=== PATIENT | female | born 1935 | race Caucasian/White ===

== ENCOUNTER 2016-08-01 18:20 | Inpatient (IN) | payer MEDICARE, BC ==
--- NOTE | ~2016-08-01 | CO ---
Unit #: [id number] #: [id number] Patient: ANUJ BALLESTEROS [id number] [address] [address] [id number] I MR#: [id number] NAME: ANUJ BALLESTEROS. ROOM: 204 Age: 80 Sex: F Admission Date: 08/01/2016 : 1935 Attending Physician: Pérez Arzola M.D. Primary Care Physician: Frantz Lucero M.D. Consultation Date: 08/03/2016 CONSULTATION REPORT CHIEF COMPLAINT Gross hematuria. HISTORY OF PRESENT ILLNESS Ms. Ballesteros is a pleasant 80-year-old female, who presented to the emergency room with gross hematuria. She reports the symptoms began a few weeks ago. It has stayed relatively constant with bright red blood passing in the urine. She has also passed a few string like clots. She has never had a prior episode of gross hematuria. No weak stream, straining, feelings of incomplete emptying. No clot retention. She reports a weight loss of approximately 20 pounds over the past 6 months. She has chronic diarrhea since her cholecystectomy. She denies abdominal or flank pain, or fevers and chills. She has had a couple of episodes of emesis over the past 10 days. PAST MEDICAL HISTORY 1. Crohn disease. 2. Anemia. 3. Chronic biliary obstruction. PAST SURGICAL HISTORY Cholecystectomy, hysterectomy, history of IVC filter which has subsequently been removed, history of umbilical hernia repair. MEDICATIONS See MAR. Note, the patient reports taking baby aspirin at home, but no Coumadin, Plavix, full-dose aspirin. ALLERGIES No known drug allergies. SOCIAL HISTORY Denies smoking tobacco. FAMILY HISTORY No history of cancers. REVIEW OF SYSTEMS The patient reports that she has had a cough over the past several weeks related to bronchitis. She has had headaches with a cough. No prior episodes of headaches. HEENT: No blurry vision. No hearing loss. Occasional epistaxis, most recent episode in the distant past. No sore throat. Unit #: [id number] #: [id number] Patient: ANUJ BALLESTEROS CHEST: She has had a cough over the past several weeks, though not chronic in nature. Occasional mild shortness of breath. CARDIAC: No palpitations or chest pain. ABDOMEN: Denies abdominal pain. She does have chronic diarrhea. EXTREMITIES: No leg swelling. No problems with ambulation. SKIN: No rash or skin breakdown. PSYCHIATRIC: No anxiety or depression. PHYSICAL EXAMINATION VITAL SIGNS: Temp 97.4, pulse 74, respiratory rate 19, BP 114/56. GENERAL: No apparent distress, appears stated age. HEENT: Pupils are equal, round, and responsive to light. Normal hearing. NECK: Trachea midline, neck supple. RESPIRATORY: Normal palpation, normal respiratory effort. CARDIOVASCULAR: Regular rate and rhythm. Good carotid pulses. ABDOMEN: Soft, nontender, nondistended. GENITOURINARY: Normal genitalia. Escobedo intact, urine clear. EXTREMITIES: No palpable edema bilaterally. No clubbing. SKIN: Warm and dry. PSYCHIATRIC: Normal affect and mood. DIAGNOSTIC STUDIES LABORATORY RESULTS: White count 5.5, hemoglobin 9.7, platelets 121. CMP; creatinine 0.9, sodium 132, CO2 of 18, elevated alkaline phosphatase and total bilirubin. IMAGING STUDIES: CT of abdomen and pelvis with IV contrast was reviewed independently by me. Large nonobstructing calculi bilaterally. Multiple renal cysts. Unclear whether these cysts represent hydronephrosis. Bladder is massively distended, but no internal masses given the limitations of the CT scan without hematuria protocol. ASSESSMENT AND PLAN 1. This is an 80-year-old female, who presents with gross hematuria, and found to have a very large obstructing renal calculi. 2. Urine is currently clear. Recommend removing the Escobedo catheter and perform a voiding trial. 3. Discussed completion of her gross hematuria workup with cystoscopy. I would recommend she undergo this in the near future. 4. We discussed management of her nonobstructing calculi. No urgent intervention is necessary, but given the size and location of these, I did recommend treatment. We discussed observation versus ureteroscopy versus extracorporeal shock wave lithotripsy. After risks and benefits were discussed, she elected to undergo elective extracorporeal shock wave lithotripsy. We will arrange this in the near future. We will plan to perform concurrent cystoscopy to complete her gross hematuria workup. Dictated by... Danny Gillis/stephane TD: 08/04/2016 02:41 JOB #: [id number] Unit #: [id number] #: [id number] Patient: LESLIANUJ Mcdonald CONSULTATION REPORT Page 1 of 1 X X CONSULTATION REPORT
--- NOTE | ~2016-08-01 | CT2 ---
[facility] A Service of [facility] / [facility] RADIOLOGY TEXT RESULTS PATIENT: ANUJ BALLESTEROS LOCATION: [facility] : 35 UNIT #: [id number] AGE: [address]: Pérez Azrola MD SEX: F ORDER DR: [id number] [facility] [address] [place], [place] [address] [id number] I MR#: [id number] Acc #: [id number] NAME: ANUJ BALLESTEROS. : 1935 SEX: F STUDY DATE/TIME: 08/01/2016 22:08 UNIT: CED ROOM: 08274 STUDY DESCRIPTION: CT Abd and Pelv W Cont Attending Physician: Pérez Arzola M.D. Ordering Physician: Ed Boom Bahena M.D. Primary Care Physician: Frnatz Lucero M.D. MEDICAL IMAGING REPORT This report is preliminary unless electronic signature is present EXAM CT abdomen and pelvis with contrast DATE 08/01/2016 HISTORY Blood in urine for 3 days. Vaginal bleeding starting last evening. Pelvic pain. Palpitations. COMPARISON CT abdomen and pelvis with contrast 09/04/2015. PROCEDURE 5 mm axial images from the lung bases through the lesser trochanters after intravenous and enteric contrast administration. Sagittal and coronal reformatted images were obtained. This CT exam was performed with one or more of the following radiation dose reduction techniques: automatic control, adjustment of mA and/or kV according to patient size, and iterative reconstruction. FINDINGS ABDOMEN FINDINGS: The examination is abnormal, with multiple findings. There is a 1.4 x 1.7 x 2.2 cm mass lesion or filling defect within the distal common bile duct resulting in severe intrahepatic and extrahepatic biliary ductal dilation. The common bile duct is dilated up to 12 mm. Intrahepatic bile ducts are dilated up to 1.3 cm.. Pancreatic duct is mildly dilated up to 7 mm. The spleen is enlarged up to 14.9 cm cranial caudally. Small quantity ascites is seen, greatest in the perihepatic distribution. Adrenal glands [facility] A Service [facility] RADIOLOGY TEXT RESULTS PATIENT: ANUJ BALLESTEROS LOCATION: [facility] : 35 UNIT #: [id number] AGE: [address]: Pérez Arzola MD SEX: F ORDER DR: are normal. There are multiple bilateral renal parapelvic cysts, but there are also multiple calculi within the dependent portions of the renal pelves and within calyces, as well. There is a stone in the left ureteropelvic junction measuring about 7 mm, which could be a cause of intermittent obstruction. There is marked abnormal wall thickening and inflammatory type change involving the ascending and transverse colon, and to a lesser degree the proximal descending colon, and within the right mid abdominal small bowel loops. This may be related to the patient's previous study of history of Crohn disease. There are abnormally dilated segmental small bowel loops with the right mid abdomen with mild segmental narrowing (series 2 image 42), represent changes of partial bowel obstruction. Moderate calcific atherosclerosis in the abdominal aorta without aneurysm. Normal appendix. No abscess is seen. PELVIS FINDINGS: Urinary bladder is moderately distended and contains some air, which may be related to recent Escobedo catheterization. Presumed surgical absence of the uterus. Small quantity pelvic ascites. Rectum is within normal limits. Lung bases demonstrate emphysematous changes. 8 mm noncalcified lingular nodule unchanged. Mild peribronchiolar thickening is demonstrated within the right middle lobe and bilateral lower lobes may represent changes of small airways infectious-inflammatory process, without dense consolidation. There is lumbar levoscoliosis with multilevel degenerative disc and endplate changes. IMPRESSION 1. Abnormal examination. Abnormal thickening and inflammatory change predominantly involving the ascending and transverse colon, and within the right mid abdominal small bowel loops and to a lesser degree proximal descending colon. Findings may represent active inflammation especially with a previous stated history of Crohn disease. There are features of suspected partial small bowel obstruction related to segmental narrowing of a bowel loop in the right mid abdomen. 2. A mass lesion is seen within the distal common bile duct, resulting in severe intrahepatic and extrahepatic biliary ductal dilation, mild pancreatic ductal dilation. ERCP would be recommended for both diagnostic and therapeutic purposes. 3. Small quantity abdominopelvic ascites. 4. Numerous bilateral renal stones. Most of the renal stones layer dependently within the renal pelves. There may be a stone within the left ureteropelvic junction measuring 8 mm, which could represent a source of intermittent obstruction. [facility]. [facility] Service of [facility] & [facility] RADIOLOGY TEXT RESULTS PATIENT: ANUJ BALLESTEROS LOCATION: [facility] [id number] : 35 UNIT #: [id number] AGE: [address]: Pérez Arzola MD SEX: F ORDER DR: 5. Extensive bilateral renal parapelvic cysts. 6. Suspected peripheral small airways infectious - inflammatory change in the bilateral lower lobes and right middle lobe. Stable 8 mm nodular density in the lingula. Emphysema. 7. Hysterectomy. Dictated by... Ruma Huerta M.D. THIS IS AN ELECTRONICALLY VERIFIED REPORT Ruma Huerta M.D. at 08/02/2016 6:02 AM SHAHLA/maría TD: 08/02/2016 01:43 JOB #: [id number] MEDICAL IMAGING REPORT Page 1 of 1 COPY
--- NOTE | ~2016-08-01 | CO ---
Unit #: [id number] #: [id number] Patient: ANUJ BALLESTEROS [id number] [address] [place], [place] [address] [id number] I MR#: [id number] NAME: ANUJ BALLESTEROS. ROOM: 204 Age: 80 Sex: F Admission Date: 08/01/2016 : 1935 Attending Physician: Pérez Arzola M.D. Primary Care Physician: Frantz Lucero M.D. CONSULTATION REPORT REFERRING PHYSICIAN Dr. Pérez Arzola. PRIMARY CARE PHYSICIAN Frantz Lucero M.D. REASON FOR CONSULTATION Abnormal LFTs, possible colitis, history of Crohn disease. HISTORY OF PRESENT ILLNESS Ms. Ballesteros is an 80-year-old pleasant lady known to me from previous workup and evaluation for last several years; however, she has not been following up for last 9 months, where she has not been taking any medications. She was diagnosed with Crohn disease many years ago. In last 9 months, she has not been taking any medications at that time. We had elected to do an ERCP. She says she has been busy taking care of her son, who had a stroke as well as her uzydnaz-cq-vwu, who is also immobilized and did not have any time for herself. At this time, she presents with hematuria, which has been going on for several weeks and became much more worse over the last few days. She was seen to have a lot of blood in the urine and has been on urethral irrigation at this time. She says she has chronic diarrhea, which has not gotten worse. Her appetite is very poor. She has lost over 20 pounds over the last 6 months or so. She does not have any nausea or vomiting. She has mild abdominal pain. PAST MEDICAL HISTORY 1. Significant for Crohn disease diagnosed in 2006, was limited to the small bowel. The last colonoscopy in 2013 shows no active disease in the colon and biopsies were negative also. 2. Biliary obstruction with significantly dilated CBD and pancreatic duct. Last ERCP was in 2013, where she had sphincterotomy and stenting, which was later removed. Last year, she was found to have a very high tumor markers. No clear mass was seen on imaging. An ERCP was planned; however, the patient has not been able to follow up, because of her personal situation at home. 3. Chronic GERD and esophageal stricture rings, that has been dilated last time last year, apparently not taking PPIs either. She is status post cholecystectomy. She is status post small-bowel obstruction in 2008. She has a history of DVT and PE, and has been on IVC filter placement; however, states she has not been taking any blood thinners recently. ALLERGIES Unit #: [id number] #: [id number] Patient: ANUJ BALLESTEROS None. MEDICATIONS The patient has not been taking any medications for last many months. FAMILY HISTORY Colon cancer, as well as breast cancer. SOCIAL HISTORY Again nonsmoker, nonalcoholic. Lives at home. She actually takes care of her son, who had a stroke and her apvpqyf-my-jaj, who is immobilized. REVIEW OF SYSTEMS Complete 10-point review of systems was done. Very weak and fatigued, poor appetite, lost about 20 pounds. Nausea, no vomiting. Review of all other systems was obtained and is negative other than as mentioned above. PHYSICAL EXAMINATION GENERAL: Appears sick, chronically ill, but alert and oriented, and in no acute distress. VITAL SIGNS: Stable. Temperature 97, pulse 91, respirations 18, blood pressure 136/59. HEENT: Pupils are equal and reactive. Sclerae anicteric. Oral mucosa moist. NECK: No JVD. No lymphadenopathy. CHEST: Few scattered rhonchi. CARDIOVASCULAR: Regular rate and rhythm. No murmurs. ABDOMEN: Mildly distended, and with minimal tenderness. No organomegaly or ascites clinically. Bowel sounds present. EXTREMITIES: Without clubbing, cyanosis, or edema. NEUROLOGIC: Intact. SKIN: Warm and dry. DIAGNOSTIC STUDIES LABORATORY RESULTS: Alkaline phosphatase of 573; total bilirubin of 2.2, seems to be some unchanged. Albumin severely low at 1.9. INR of 2.3. Sodium 134, potassium 2.8. Hemoglobin of 8.5 and platelet count of 162. IMAGING STUDIES: CT scan shows evidence of, 1. A 1.7 x 2.2 cm filling defect or mass in distal common bile duct area. 2. Common bile duct and pancreatic duct, both dilated. 3. Small ureteropelvic stone. 4. Large spleen. 5. Mild ascites. 6. Colon wall thickening in descending and transverse colon. ASSESSMENT AND PLAN 1. The patient with acute hematuria, which is being treated possibly related to the stone. 2. Colon wall thickening, chronic diarrhea, possible flare up of her Crohn disease related colitis versus infectious. We will check stool studies. We will plan on doing a colonoscopy after stabilizing. 3. Biliary obstruction, possible mass versus filling defect in distal common bile duct area. She has had significantly elevated tumor markers. Given her history of longstanding Crohn disease, she is also at very high risk of primary sclerosing cholangitis, could also may have cirrhosis already as a result. We will need endoscopic retrograde cholangiopancreatography versus magnetic resonance Unit #: [id number] #: [id number] Patient: ANUJ BALLESTEROS cholangiopancreatography as well as a liver biopsy over the next few days. 4. Gastroesophageal reflux disease and history of the esophageal stricture. Continue PPI therapy. 5. Weight loss, again possibility of malignancy. Thank you Dr. Ledezma for this interesting consult. We will follow along. Dictated by... Danny Willard/stephane TD: 08/03/2016 01:41 JOB #: [id number] CONSULTATION REPORT Page 1 of 1 X Calixto Jones MD X CONSULTATION REPORT
--- NOTE | ~2016-08-01 | CO ---
Unit #: [id number] #: [id number] Patient: ANUJ BALLESTEROS [id number] [address] [address] [id number] I MR#: [id number] NAME: ANUJ BALLESTEROS. ROOM: 204 Age: 80 Sex: F Admission Date: 08/01/2016 : 1935 Attending Physician: Pérez Arzola M.D. Primary Care Physician: Frantz Lucero M.D. CONSULTATION REPORT CHIEF COMPLAINT We were asked to see for PVCs. HISTORY OF PRESENT ILLNESS Ms. Ballesteros is an 80-year-old white female, who was admitted with hematuria. She has a past medical history for Crohn's, history of chronic biliary obstruction, anemia, 8 mm noncalcified pulmonary nodule as well as a history of a pulmonary embolus, requiring IVC filter and anticoagulation in the past. She presented this admission with hematuria couple of weeks duration. She thought maybe she was having some vaginal bleeding. Primary care note states there was no bleeding around the urethra and no evidence of vaginal bleeding. The patient denied abdominal pain. Denied dysuria. The patient denies history of diabetes. No hypertension, no dyslipidemia, no premature arteriosclerotic heart disease in first degree relatives, no tobacco abuse. PAST MEDICAL HISTORY 1. History of Crohn disease diagnosed around [id number]. 2. History of partial small bowel obstruction, requiring exploratory laparotomy in 2008. Last colonoscopy 10/2014, which was negative. 3. History of biliary dilatation with ERCP and sphincterotomy with stent placement in 08/2013. 4. History of chronic biliary obstruction. 5. History of chronic diarrhea. 6. History of mild gastritis, hiatal hernia, and Schatzki ring per EGD. 7. History of right inguinal hernia. PAST SURGICAL HISTORY 1. History of cholecystectomy. 2. History of total abdominal hysterectomy. 3. History of IVC filters. 4. History of ERCP with sphincterotomy and stent placement. ALLERGIES No known allergies. MEDICATIONS Home medications are being investigated at this time. I do not see any home medications listed. FAMILY HISTORY Positive for colon and breast cancer and hypertension. SOCIAL HISTORY Unit #: [id number] #: [id number] Patient: ANUJ BALLESTEROS The patient lives with many family members. She takes care of a mentally disabled sibling. Lifelong nonsmoker. Rare alcohol intake. No illicit drug use. REVIEW OF SYSTEMS CONSTITUTIONAL: Positive for fatigue. No fevers, no chills. GI: No nausea, vomiting. No blood in the stool. : No dysuria, but positive for hematuria. CARDIOVASCULAR: No chest pain. No chest pressure. NEUROLOGIC: No dizziness. No lightheadedness. No syncope. No near syncope. EXTREMITIES: No lower extremity edema. No orthopnea. PULMONARY: No dyspnea on exertion. No shortness of breath. Pulmonary; no cough. No wheeze. ENDOCRINE: No diabetes. SKIN: No rashes. PHYSICAL EXAMINATION GENERAL: Well developed, well nourished, elderly white female, in a bed, in no acute distress. VITAL SIGNS: Temperature 97.9, pulse 68, normal sinus rhythm with occasional PAC and PVCs, respirations 17, blood pressure 110/51, 5 feet 1-1/2 inches, 48.08 kg, BMI 19. HEENT: Normocephalic and atraumatic. No xanthelasma. Pupils equal, round, reactive to light. Extraocular movements intact. NECK: Supple. No jugular venous distention. No elevated CVP. LUNGS: Clear to auscultation anteriorly posteriorly bilaterally. CORONARY: S1, S2. No S3, S4. No murmurs, rubs, or gallops. No lift. PMI nondisplaced. ABDOMEN: Soft, nontender, nondistended. EXTREMITIES: No clubbing, cyanosis, or edema. SKIN: No rash. SPINE: No scoliosis. DIAGNOSTIC STUDIES IMAGING STUDIES: CT of abdomen and pelvis on 08/01/2016 shows abnormal thickening and inflammatory change predominantly involving the ascending and transverse colon and within the right abdominal small bowel loops into the lesser degree proximal descending colon. Mass lesion is seen within the distal common bile duct resulting in severe intrahepatic and extrahepatic biliary ductal dilatation, mild pancreatic ductal dilatation, small quantity abdominopelvic ascites, numerous bilateral renal stones. Most of the renal stones dependently within the renal pelvis, may be a stone within the left ureteropelvic junction measuring 8 mm, which could represent a source of intermittent obstruction and extensive bilateral renal peripelvic cyst. Suspect a peripheral small airway infectious/inflammatory change in the bilateral lower lobes and right middle lobe. Stable 8 mm nodule density in the lingula. Emphysema. CARDIOVASCULAR STUDIES: 12-lead EKG shows normal sinus rhythm, ventricular rate 67, T-wave inversion in leads V1 and V2. PAC noted. Q-waves in the inferior leads. LABORATORY RESULTS: Sodium 132, potassium 3.5, chloride 110, CO2 18, BUN 12, creatinine 0.9, glucose 76, magnesium 1.6, phosphorus 3.8, total protein 5.8, albumin 1.7. Bilirubin total 2.2, bilirubin direct 1.1, bilirubin indirect 1.5. AST 33, ALT 21, alkaline phosphatase 443. PT 30. INR 2.7. Hemoglobin 9.7, hematocrit 29.3, white blood cell count 5.5, Unit #: [id number] #: [id number] Patient: ANUJ BALLESTEROS platelet count 121. ASSESSMENT AND PLAN Occasional premature ventricular contractions. No ventricular tachycardia. Premature ventricular contractions were single premature ventricular contractions only. Premature atrial contractions. The patient had normal potassium, normal magnesium. We will check an echo. Abnormal EKG. Again, we will check an echocardiogram. The patient denies any cardiac history. No cast. No stents. No angioplasty. No stress testing. We will treat conservatively and indeed of follow for any further recommendations. Dictated by... Mikel MoncadaRHannyNHanny for NMDebbie/stephane TD: 08/04/2016 05:31 JOB #: [id number] CONSULTATION REPORT Page 1 of 1 X X CONSULTATION REPORT
--- NOTE | ~2016-08-01 | DS ---
Unit #: [id number] #: [id number] Patient: ANUJ BALLESTEROS [id number] [address] [place], [place] [address] [id number] I MR#: [id number] NAME: ANUJ BALLESTEROS. ROOM: 204 Age: 81 Sex: F Admission Date: 08/01/2016 : 1935 Discharge Date: Attending Physician: Davdi Brown M.D. Primary Care Physician: Frantz Lucero M.D. DISCHARGE SUMMARY CHIEF COMPLAINT Bloody urine, abdominal pain. HISTORY OF PRESENT ILLNESS The patient is an 81-year-old lady with a past medical history of Crohn disease, history of chronic biliary obstruction, anemia, history of 8 mm noncalcified pulmonary nodule, chronic diarrhea, history of PE in the past status post IVC filter, who presented to the emergency room with a chief complaint of having bloody urine. CONSULTANTS 1. Dr. Calixto Jones. 2. Dr. Ingram. 3. Dr. Obrien. PROCEDURE Colonoscopy. HOSPITAL COURSE Because of the abnormal LFTs and concern for possible colitis and Crohn disease, GI was consulted. She had a colonoscopy. Colonoscopy was essentially normal. She was started on antimicrobials for possible colitis. For hematuria, urology was consulted. Urology evaluated the patient and they recommended the patient possibly requires an outpatient ESWL as an outpatient procedure. She did have occasional PACs and PVCs and for further evaluation, cardiology was consulted. They did an echocardiogram. Echocardiogram showed EF of 65%. LV size is normal. Mild concentric LV hypertrophy. Impaired grade 1 diastolic dysfunction. Cardiology recommended no further workup. Patient is doing clinically better. She wants to go home today. Will discharge her home. Will request her to follow with her primary care as an outpatient. PHYSICAL EXAMINATION On the day of the discharge, her physical examination: VITAL SIGNS: Temperature 97.9, pulse rate 76, respirations 20, blood pressure 111/55. GENERAL: Patient is alert, oriented x3, lying in the bed. No acute distress. HEENT: Normocephalic and atraumatic. No icterus. PERRLA. Extraocular muscles intact. NECK: Supple. No JVD. HEART: S1, S2. Regular rate and rhythm. CHEST: Bilaterally equal air entry. Clear to auscultation. ABDOMEN: Soft, nontender. Bowel sounds present. Unit #: [id number] #: [id number] Patient: ANUJ BALLESTEROS EXTREMITIES: No edema. Normal pulses. DISCHARGE MEDICATIONS 1. Magnesium oxide 400 mg p.o. twice a day. 2. Aspirin 81 mg daily. 3. Oxycodone 5/325 one tab p.o. q.6 p.r.n. for pain. 4. Protonix 40 mg twice a day. 5. Flagyl 500 mg p.o. t.i.d. for two days. 6. Levaquin 750 mg p.o. daily for two days. 7. Over the counter probiotic. FOLLOWUP She is instructed to follow with her primary care. Total time spent in her care, 35 minutes. Dictated by... Danny Damon TD: 08/06/2016 15:39 JOB #: [id number] DISCHARGE SUMMARY Page 1 of 1 X X DISCHARGE SUMMARY
--- NOTE | ~2016-08-01 | HP ---
Unit #: [id number] #: [id number] Patient: ANUJ BALLESTEROS [id number] [address] [place], [place] [address] [id number] MR#: [id number] NAME: ANUJ BALLESTEROS ROOM: 93449 Age: 80 Sex: F Admission Date: 08/01/2016 : 1935 Attending Physician: Pérez Arzola M.D. Primary Care Physician: Frantz Lucero M.D. HISTORY AND PHYSICAL CHIEF COMPLAINT Blood in the urine. DISCUSSION This is an 80-year-old female who has a past medical history significant for a history of Crohn disease, history of chronic biliary obstruction, anemia, history of 8 mm noncalcified pulmonary nodule, chronic diarrhea, history of PE in the past requiring IVC filter placement and subsequent removal. She presented to emergency room with chief complaining of having hematuria. She said whenever she sees blood in the urine she was also suspecting questionable vaginal bleeding but she had a pelvic exam done by ER physician in the ER which did not show any blood clot at vaginal introitus and bleeding is coming from urethra. She said she has been having for a couple of weeks, whenever she pees she sees blood in the urine, a couple of times a day. She though denies any abdominal pain. She had some nausea but no fever, no chills. She denies any other complaint. No loss of consciousness but she feels generalized weak and fatigued and tired. PAST MEDICAL HISTORY 1. History of Crohn disease diagnosed between 2006 and 2007. 2. She has a history of partial small bowel obstruction in 2008 requiring exploratory laparotomy. Also she underwent a capsule endoscopy showing Crohn disease and she is followed by Dr. Jones. Last colonoscopy in October 2014 which was negative. 3. History of biliary dilatation, status post ERCP and sphincterotomy along with stent placement in August 2013. 4. History of chronic biliary obstruction. 5. History of chronic diarrhea. 6. History of previous EGD revealing Schatzki ring and small hiatal hernia, mild gastritis. 7. History of right inguinal hernia x2. 8. Cholecystectomy. 9. History of total abdominal hysterectomy. 10. History of previous pulmonary embolism requiring IVC filter placement and then subsequent removal. ALLERGIES No known drug allergies. HOME MEDICATIONS I do not have home medication at time of dictation. Will call the pharmacy and find home medication. Unit #: [id number] #: [id number] Patient: ANUJ BALLESTEROS FAMILY HISTORY History of colon and breast cancer along with hypertension in the family. SOCIAL HISTORY Patient lives with the family. She is a nonsmoker, does not drink alcohol, no other illicit drug use. REVIEW OF SYSTEMS CONSTITUTIONAL: She feels tired, fatigued. GASTROINTESTINAL: Positive for nausea but no vomiting. No diarrhea. No blood in the stool. GENITOURINARY: She denies any dysuria but she said she has blood in the urine whenever she pees. CARDIOVASCULAR: No chest pain. PULMONARY: No cough. No wheezing. ENDOCRINE: No polyuria. No polydipsia. SKIN: No rash. MUSCULOSKELETAL: No complaint. PHYSICAL EXAMINATION GENERAL: On examination elderly female lying in the bed comfortably currently not in any distress. On general examination she is alert, awake, oriented x3, comfortable, no in any distress. VITAL SIGNS: Current vitals are following: Temperature 97.8, heart rate 91, respiratory rate is 18, blood pressure 136/59, oxygen 100% on room air. HEENT: Extraocular muscles intact. Pupils equally react to light and accommodation. Pharynx is benign. NECK: Supple. No JVD. No thyromegaly. No lymphadenopathy. LUNGS: Clear to auscultation. HEART: S1, S2, regular rate and rhythm. ABDOMEN: Soft, nontender, nondistended. Bowel sounds positive. EXTREMITIES: Inspection normal. No cyanosis. No clubbing. No edema. NEUROLOGIC: No focal neurologic deficit. SKIN: Skin is warm, dry. No rash. PSYCHIATRIC: Normal mood and affect. DIAGNOSTIC STUDIES LABORATORY: Current workup is following: AST 44, ALT 22, alkaline phosphatase 573, total bilirubin 2.2, direct is 1, indirect 1.2, albumin 2.1. UA shows blood positive. Sodium 134, potassium 2.8, chloride 109, glucose 103, BUN 20, creatinine 1, INR is 2.3. CBC: White count 7, hemoglobin 8.5, hematocrit 26, platelet is 162. ASSESSMENT AND PLAN 1. Gross hematuria: Will place a three-way Escobedo catheter with irrigation, ask Urology to evaluate. 2. Hypokalemia: Replace. 3. 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 Jones to reevaluate. 4. Symptomatic anemia with gross acute blood loss anemia: I will go ahead and transfuse two units of pack red blood cells. 5. History of Crohn disease. 6. History of chronic biliary obstruction. 7. History of noncalcified pulmonary nodule. 8. Remote history of pulmonary embolism, status post IVC filter placement and then removal. Unit #: [id number] #: [id number] Patient: ANUJ BALLESTEROS 9. 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 DVT prophylaxis: Will place the patient on SCDs. Dictated by Danny Escobedo/rachel TD: 08/01/2016 23:01 JOB #: [id number] HISTORY AND PHYSICAL Page 1 of 1 X X HISTORY AND PHYSICAL
--- NOTE | ~2016-08-01 | A ---
[facility] Nutrition Therapy DATE: 08/04/16 Patient: ANUJ BALLESTEROS Physician: DAPHNE Address: [address] Room/Bed: [address] [place] [address], Zip: [place] [address] Admit Date: 08/01/16 Date of : [birth year] Height: 5 1.5 Weight: 106 48.08 NUTRITIONAL ASSESSMENT: REASON: 3 NUTRITION RISK PT RE: 20# WEIGHT LOSS PT IS 80 Y.O. FEMALE ADMITTED FOR GROSS HEMATURIA, HYPOKALEMIA PMH: CROHNS DISEASE, SBO, H/O DYSPHAGIA, HIATAL HERNIA, GASTRITIS, CHOLY, REMOTE PE, HX OF PARTIAL SBO S/P EXPLORATORY LAP IN 2008 Anthropometrics: 5'1.5", WT: 105# (48 KG), BMI: 19.5, 97%IBW Labs: GLU: 67, CA+:7.3, ALB: 1.7 Meds: KCL, ZOFRAN, PROTONIX, NACL I/O & Bowel function: 3150/1000 Skin Integrity: DRY SKIN NOTED ALL OVER BODY Estimated Nutrition Needs: INCREASED NUTRIENT NEEDS 2' PT LOW BODY WEIGHT, WEIGHT LOSS NOTED, DECREASED PO INTAKE AND APPETITE Assessment: CHART REVIEWED AND EVENTS NOTED. PT SEEN FOR 3 NUTRITION RISK PT RE: WEIGHT LOSS. PT REPORTS "APPETITE GOES UP AND DOWN", NOTES FEELING NAUSEOUS THIS AM. PT REPORTS CHRONIC DIARRHEA SINCE CHOLECYSTECTOMY IN 1982. PT ADDS SHE HAS LOST ~20# PAST 6 MONTHS/16% SEVERE WEIGHT LOSS NOTED. THIS RD ENCOURAGED SLOW GRADUAL PO INTAKE + EVENTUALLY CONSUMING SMALL FREQUENT MEALS, PT AGREED TO ENSURE CLEAR BID, RD WILL ORDER. PT REPORTED NO DIET QUESTIONS AT THIS TIME. RD TO FOLLOW. SEE RECOMMENDATIONS BELOW. Dx: INADEQUATE PROTEIN-ENERGY INTAKE R/T N/D, CURRENT CONDITION AEB PT REPORT ABOVE, LOW BMI NOTED, 20#/16% SEVERE WEIGHT LOSS NOTED! Intervention: 1. CLEAR LIQUID DIET 2. ENSURE CLEAR (MIXED CURTIS) BID Monitoring, Evaluation and Goals: 1. ORAL INTAKE; CONSUME MEALS AND SUPPLEMENTS W/NO C/O N/V/D (PO>50%) 2. WEIGHTS; PREVENT FURTHER UNINTENTIONAL WEIGHT LOSS 3. LABS; WNL 4. GI; PROMOTE REGULAR GI FUNCTION MONITOR: -PO INTAKE/APPETITE [facility] Nutrition Therapy DATE: 08/04/16 Patient: ANUJ BALLESTEROS Physician: DAPHNE Address: [address] Room/Bed: [address], Zip: [place] [address] Admit Date: 08/01/16 Date of : [birth year] Height: 5 1.5 Weight: 106 48.08 -WEIGHTS -SUPPLEMENT INTAKE Recommendations: 1. ORDER MIXED CURTIS ENSURE CLEAR BID W/MEALS 2. ONCE MEDICALLY FEASIBLE, ADVANCE DIET TOLERATED TO LOW FIBER + 6 SMALL MEALS 3. APPRECIATE FAMILY AND STAFF TO ENCOURAGE ADEQUATE KCAL AND PROTEIN INTAKE RD WILL F/U PER PROTOCOL PT IS MODERATELY COMPROMISED Respectfully, FARIDEH FOWLER MS, RD, LD [employer] [facility] cc: client file
--- NOTE | ~2016-08-01 | OR ---
Unit #: [id number] #: [id number] Patient: ANUJ BALLESTEROS [id number] [address] [address] [id number] I MR#: [id number] NAME: ANUJ BALLESTEROS. ROOM: 204 Date of Procedure: 08/05/2016 Admission Date: 08/01/2016 Surgeon: Calixto Jones M.D. : 1935 Attending Physician: Pérez Arzola M.D. Primary Care Physician: Frantz Lucero M.D. PROCEDURE OPERATIVE NOTE PROCEDURE PERFORMED Colonoscopy to TI with biopsies. INDICATION Patient with history of Crohn's disease, chronic diarrhea, now with abdominal pain. CT scan showing thickening in the colon on the left side significantly, undergoing colonoscopy. MEDICATION Monitored anesthesia. POSTOP FINDING 1. Colonoscopy to the cecum and terminal ileum. Mucosa was completely normal and healthy. No active disease was seen at this point. No polyps or masses were seen. 2. Biopsies taken randomly in the colon looking for disease activity. DESCRIPTION OF PROCEDURE The patient was explained the procedure, risks and benefits along the risks and benefits of anesthesia. She was brought to the endoscopy room. Propofol anesthesia was given. Rectal exam was done which was normal. Colonoscope was lubricated, passed up the rectum, advanced under direct vision all the way to cecum. The cecum was identified by ileocecal valve, appendiceal orifice. Terminal ileum was intubated. It shows normal mucosa. Colonic mucosa was normal throughout. Random biopsies taken. Gently, the scope was pulled out. She tolerated it well. Dictated by... Danny Willard/jaydon TD: 08/05/2016 12:30 JOB #: [id number] Unit #: [id number] #: [id number] Patient: ANUJ BALLESTEROS PROCEDURE OPERATIVE NOTE Page 1 of 1 X Calixto Jones MD X PROCEDURE OPERATIVE NOTE
--- NOTE | ~2016-08-01 | EKG ---
PATIENT: ANUJ BALLESTEROS UNIT #: [id number] Ventricular Rate: 67 BPM Atrial Rate: 67 BPM P-R Interval: 118 ms QRS Duration: 72 ms Q-T Interval: 438 ms QTC Calculation(Bezet): 462 ms P [place]: -8 degrees Calculated R [place]: -11 degrees Calculated T [place]: -9 degrees Diagnosis Line: Sinus rhythm with occasional Premature atrial Diagnosis Line: complexes Diagnosis Line: Abnormal ECG Diagnosis Line: When compared with ECG of 04-SEP-2015 04:54, Diagnosis Line: Premature atrial complexes are now Present Diagnosis Line: Inverted T waves have replaced nonspecific T wave Diagnosis Line: abnormality in Inferior leads Diagnosis Line: Nonspecific T wave abnormality now evident in Diagnosis Line: Anterior leads Diagnosis Line: Confirmed by SALVADOR BYNUM MD ([id number]) on 08/03/2016 Diagnosis Line: 10:54:01 PM INTERPRETING MD: FLETCHER MICHELE
[2016-08-01 17:56] LABS: BASOPHIL% 0.3 % (0-2.5); DIFF IND NO; EOSINOPHIL# 0.1 X10e3 (0-0.7); EOSINOPHIL% 1.2 % (0.0-7.0); HEMATOCRIT 26.1 % (35.0-45.0); HEMOGLOBIN 8.5 gm/dL (12.0-16.0); LYMPHOCYTE# 0.4 X10e3 (1.0-3.5); LYMPHOCYTE% 5.6 % (17.0-45.0); MEAN CELL VOLUME 85.2 FL (83-96); MEAN CORPUSCULAR HEMOGLOBIN 27.6 PG (28-34); MEAN CORPUSCULAR HGB CONC 32.4 g/dL (30-36); MEAN PLATELET VOLUME 7.3 FL (6.5-11.5); MONOCYTE# 0.6 X10e3 (0-1.0); MONOCYTE% 7.2 % (3.0-12.0); NEUTROPHIL# 6.6 X10e3 (1.5-7.1); NEUTROPHIL% 85.7 % (40-75); PLATELET COUNT 162 X10e3 (140-420); RED BLOOD COUNT 3.06 X10e (3.90-5.30); RED CELL DISTRIBUTION WIDTH 18.3 % (11.0-15.5); WHITE BLOOD COUNT 7.7 X10e3 (4.0-10.5)
[2016-08-01 18:04] LABS: URINE SOURCE CLEAN CATCH
[2016-08-01 18:08] LABS: INR 2.3; PROTHROMBIN TIME (PATIENT) 25.3 SECONDS (9.6-11.5)
[~2016-08-01 18:20] MED LIST: ACETAMINOPHEN325 MG PO; ADVAIR INH; ALEVE220 M1 PO; ALKA-SELTZER125 MG PO; ASPIRIN EC81 M1 PO; ASPIRIN81 M2 PO; AZATHIOPRINE50 M1 PO; AZATHIOPRINE50 M2 PO; CALCIUM + D 6001 TA1 PO; CALCIUM 500 +1 EAC2 PO; CALCIUM500 MG PO; CECLOR PO; CIPRO PO; COUMADIN PO; FLAGYL PO; IMMODIUM1 MG/5 M1 PO; IMODIUM A-D2 M1 PO; IMODIUM2 MG; IMODIUM2 MG PO; IMURAN50 MG PO; KCL PO; KROGER PHARMACY; LEVAQUIN PO; LEVAQUIN750 MG PO; LORTAB 7.5-5001 TAB PO; MACROBID100 M1 PO; MICRO-K PO; OMEPRAZOLE20 M1 PO; OMEPRAZOLE40 M1 PO; POTASSIUM99 M1 PO; PREDNISONE PO; PREDNISONE10 MG/DOSE PO; PREVACID PO; PRILOSEC PO; PRILOSEC20 M1 PO; PRILOSEC40 MG PO; RECLAST 55 MG/100 M INJ; VITAMIN B-1000 MCG/1 INJ; WELCHOL625 MG PO
[2016-08-01 18:23] LABS: URINE BLOOD 4+ (NEG); URINE COLOR RED; URINE GLUCOSE NORM (NORM); URINE KETONE NEG (NEG); URINE LEUKOCYTE ESTERASE NEG (NEG); URINE NITRATE NEG (NEG); URINE PROTEIN 3+ (NEG); URINE UROBILINOGEN NORM (NORM)
[2016-08-01 18:24] LABS: CALCIUM SERUM 7.2 mg/dL (8.4-10.2); GLOM FILT RATE Estimated 53.2 mL/min (>60)
[2016-08-01 18:26] LABS: POTASSIUM 2.8 mmol/L (3.5-5.1)
[2016-08-01 18:27] LABS: URINE BILIRUBIN NEG (NEG)
[2016-08-01 18:31] LABS: CULTURE INDICATED? NO; URINE APPEARANCE TURBID
[2016-08-01 19:12] LABS: ALBUMIN SERUM 2.1 g/dL (3.5-5.0); BILIRUBIN,INDIRECT 1.2 mg/dL (0.0-0.9); BILIRUBIN,TOTAL 2.2 mg/dL (0.2-2.0); PROTEIN TOTAL SERUM 6.9 g/dL (6.0-8.3)
[2016-08-01] MEDS ORDERED: AMOXICILLIN500 M1 PO (20:59)
[2016-08-01] MEDS ORDERED: ADOXA PAK100 MG PO (21:20)
[2016-08-02 04:15] LABS: BASOPHIL% 0.3 % (0-2.5); EOSINOPHIL# 0.1 X10e3 (0-0.7); EOSINOPHIL% 1.1 % (0.0-7.0); HEMOGLOBIN 8.9 gm/dL (12.0-16.0); LYMPHOCYTE# 0.4 X10e3 (1.0-3.5); MEAN CELL VOLUME 85.6 FL (83-96); MEAN CORPUSCULAR HEMOGLOBIN 28.2 PG (28-34); MEAN CORPUSCULAR HGB CONC 32.9 g/dL (30-36); MEAN PLATELET VOLUME 7.6 FL (6.5-11.5); MONOCYTE# 0.6 X10e3 (0-1.0); MONOCYTE% 7.9 % (3.0-12.0); NEUTROPHIL% 85.7 % (40-75); PLATELET COUNT 135 X10e3 (140-420); RED BLOOD COUNT 3.15 X10e (3.90-5.30); RED CELL DISTRIBUTION WIDTH 17.5 % (11.0-15.5); WHITE BLOOD COUNT 7.1 X10e3 (4.0-10.5)
[2016-08-02 04:16] LABS: DIFF IND NO
[2016-08-02 04:28] LABS: INR 2.7
[2016-08-02 04:36] LABS: ALBUMIN SERUM 1.9 g/dL (3.5-5.0); BILIRUBIN, DIRECT 1.1 mg/dL (0.0-0.2); BILIRUBIN,INDIRECT 1.5 mg/dL (0.0-0.9); BILIRUBIN,TOTAL 2.6 mg/dL (0.2-2.0); CALCIUM SERUM 7.1 mg/dL (8.4-10.2); CREATININE SERUM 0.8 mg/dL (0.6-1.4); GLOM FILT RATE Estimated 69.7 mL/min (>60); MAGNESIUM 1.5 mg/dL (1.6-3.0); POTASSIUM 3.2 mmol/L (3.5-5.1); PROTEIN TOTAL SERUM 6.2 g/dL (6.0-8.3)
[2016-08-03 06:39] LABS: HEMATOCRIT 29.3 % (35.0-45.0); HEMOGLOBIN 9.7 gm/dL (12.0-16.0); MEAN CELL VOLUME 85.1 FL (83-96); MEAN CORPUSCULAR HEMOGLOBIN 28.2 PG (28-34); MEAN CORPUSCULAR HGB CONC 33.1 g/dL (30-36); MEAN PLATELET VOLUME 7.6 FL (6.5-11.5); RED BLOOD COUNT 3.45 X10e (3.90-5.30); RED CELL DISTRIBUTION WIDTH 17.6 % (11.0-15.5); WHITE BLOOD COUNT 5.5 X10e3 (4.0-10.5)
[2016-08-03 07:17] LABS: ALBUMIN SERUM 1.7 g/dL (3.5-5.0); BILIRUBIN,TOTAL 2.2 mg/dL (0.2-2.0); BUN/CREATININE RATIO 13.33; CREATININE SERUM 0.9 mg/dL (0.6-1.4); GLOM FILT RATE Estimated 60.4 mL/min (>60); POTASSIUM 3.5 mmol/L (3.5-5.1); PROTEIN TOTAL SERUM 5.8 g/dL (6.0-8.3)
[2016-08-04 06:22] LABS: HEMATOCRIT 29.5 % (35.0-45.0); HEMOGLOBIN 9.7 gm/dL (12.0-16.0); MEAN CELL VOLUME 85.7 FL (83-96); MEAN CORPUSCULAR HEMOGLOBIN 28.3 PG (28-34); MEAN PLATELET VOLUME 7.3 FL (6.5-11.5); RED BLOOD COUNT 3.44 X10e (3.90-5.30); RED CELL DISTRIBUTION WIDTH 17.4 % (11.0-15.5); WHITE BLOOD COUNT 5.4 X10e3 (4.0-10.5)
[2016-08-04 07:03] LABS: BUN/CREATININE RATIO 11.11; CALCIUM SERUM 7.3 mg/dL (8.4-10.2); CREATININE SERUM 0.9 mg/dL (0.6-1.4); GLOM FILT RATE Estimated 60.4 mL/min (>60); POTASSIUM 4.3 mmol/L (3.5-5.1)
[2016-08-05 05:35] LABS: HEMATOCRIT 31.2 % (35.0-45.0); HEMOGLOBIN 10.1 gm/dL (12.0-16.0); MEAN CELL VOLUME 86.7 FL (83-96); MEAN CORPUSCULAR HEMOGLOBIN 28.1 PG (28-34); MEAN CORPUSCULAR HGB CONC 32.4 g/dL (30-36); MEAN PLATELET VOLUME 7.9 FL (6.5-11.5); RED BLOOD COUNT 3.6 X10e (3.90-5.30); RED CELL DISTRIBUTION WIDTH 17.2 % (11.0-15.5); WHITE BLOOD COUNT 6.5 X10e3 (4.0-10.5)
[2016-08-05 06:10] LABS: INR 1.3
[2016-08-05 06:42] LABS: ALBUMIN SERUM 1.8 g/dL (3.5-5.0); BILIRUBIN,TOTAL 1.7 mg/dL (0.2-2.0); CALCIUM SERUM 7.2 mg/dL (8.4-10.2); CREATININE SERUM 0.9 mg/dL (0.6-1.4); POTASSIUM 4.3 mmol/L (3.5-5.1); PROTEIN TOTAL SERUM 5.8 g/dL (6.0-8.3)
[2016-08-06 05:23] LABS: HEMATOCRIT 29.8 % (35.0-45.0); HEMOGLOBIN 9.7 gm/dL (12.0-16.0); MEAN CELL VOLUME 86.5 FL (83-96); MEAN CORPUSCULAR HEMOGLOBIN 28.2 PG (28-34); MEAN CORPUSCULAR HGB CONC 32.6 g/dL (30-36); MEAN PLATELET VOLUME 7.6 FL (6.5-11.5); RED BLOOD COUNT 3.44 X10e (3.90-5.30); RED CELL DISTRIBUTION WIDTH 17.8 % (11.0-15.5); WHITE BLOOD COUNT 5.3 X10e3 (4.0-10.5)
[2016-08-06 06:19] LABS: ALBUMIN SERUM 1.6 g/dL (3.5-5.0); BILIRUBIN,TOTAL 1.8 mg/dL (0.2-2.0); CREATININE SERUM 0.9 mg/dL (0.6-1.4); POTASSIUM 4.5 mmol/L (3.5-5.1); PROTEIN TOTAL SERUM 5.3 g/dL (6.0-8.3)
[2016-08-06] MEDS ORDERED: MAG-OX 400400 M1 PO (15:36)
[2016-08-06] MEDS ORDERED: PROTONIX PO (15:39)
[2016-08-06] MEDS ORDERED: ASPIRIN81 M2 PO (15:39)
[2016-08-06] MEDS ORDERED: LEVAQUIN750 M1 PO (15:40)
[2016-08-06] MEDS ORDERED: PROBIOTIC1 EAC1 PO (15:41)
[2016-08-06] MEDS ORDERED: FLAGYL PO (15:41)
[2016-08-06] MEDS ORDERED: PERCOCET5/325 PO (15:42)
== END 2016-08-06 17:40 | disposition home health service (06) | DRG 391 ==
LOC: CED 18:20 → CEDOF 21:10 → C2A 08-02 12:14
PROVIDERS: Emergency Medicine; Internal Medicine
PROC: 30233N1 Transfusion of Nonautologous Red Blood Cells into Peripheral Vein, Percutaneous Approach (ICD-10-PCS; 2016-08-01)
PROC: B24BYZZ Ultrasonography of Heart with Aorta using Other Contrast (ICD-10-PCS; 2016-08-03)
PROC: 0DBE8ZX Excision of Large Intestine, Via Natural or Artificial Opening Endoscopic, Diagnostic (ICD-10-PCS; principal; 2016-08-05 11:06)
DX: K52.9 Noninfective gastroenteritis and colitis, unspecified (principal); K83.1 Obstruction of bile duct; R18.8 Other ascites; I50.32 Chronic diastolic (congestive) heart failure; K50.90 Crohn's disease, unspecified, without complications; D62 Acute posthemorrhagic anemia; E44.1 Mild protein-calorie malnutrition; N20.1 Calculus of ureter; Z68.1 Body mass index [BMI] 19.9 or less, adult; N20.0 Calculus of kidney; K22.2 Esophageal obstruction; R31.0 Gross hematuria; E87.6 Hypokalemia; Z86.711 Personal history of pulmonary embolism; Z90.49 Acquired absence of other specified parts of digestive tract; Z90.710 Acquired absence of both cervix and uterus; I49.3 Ventricular premature depolarization; K21.9 Gastro-esophageal reflux disease without esophagitis; Z86.718 Personal history of other venous thrombosis and embolism; R16.1 Splenomegaly, not elsewhere classified; E83.42 Hypomagnesemia
CPT/HCPCS: 36415; 74177; 80048; 80053; 80076; 81003; 83735; 84484; 85025; 85027; 85610; 85652; 86140; 86850; 86900; 86901; 86923; 87045; 87427; 87493; 87899; 88305; 93005; 93306; 99285; C9113; J0696; J1956; J2405; J3430; J3475; P9016; Q9967

== ENCOUNTER → 2016-11-05 | Outpatient (CLI) | payer MEDICARE, BC ==
[~2016-11-05] MED LIST changes: +ADOXA PAK100 MG PO; +AMOXICILLIN500 M1 PO; +LEVAQUIN750 M1 PO; +MAG-OX 400400 M1 PO; +PERCOCET5/325 PO; +PROBIOTIC1 EAC1 PO; +PROTONIX PO
--- NOTE | ~2016-11-05 | US5 ---
[facility] A Service of [facility] RADIOLOGY TEXT RESULTS PATIENT: ANUJ BALLESTEROS LOCATION: [facility] : [birth year] UNIT #: [id number] AGE: [address]: Calixto Jones MD SEX: F ORDER DR: [id number] [facility] [address] [place], [place] [address] [id number] O MR#: [id number] Acc #: [id number] NAME: ANUJ BALLESTEROS : 1935 SEX: F STUDY DATE/TIME: 11/05/2016 9:10 UNIT: CGUS ROOM: STUDY DESCRIPTION: US Abdominal Complete Attending Physician: Calixto Jones M.D. Referring Physician: Calixto Jones M.D. Ordering Physician: Calixto Jones M.D. Primary Care Physician: Frantz Lucero M.D. MEDICAL IMAGING REPORT This report is preliminary unless electronic signature is present EXAM Abdominal ultrasound INDICATION Intermittent abdominal pain and cramping for the past month. PROCEDURE Choi-scale and Doppler imaging of the abdomen. COMPARISON CT from 08/01/2016. FINDINGS Visualized portions of the abdominal aorta unremarkable. Visualized portions of pancreas are unremarkable but majority is obscured by bowel gas and not well seen. Liver is difficult to evaluate on this study. No obvious liver mass. Right kidney measures 11.2 cm. Common duct measures 4 mm. Left kidney measures 9.3 cm. There is persistent bilateral hydronephrosis versus renal parapelvic cysts. Spleen measures 15.1 cm. IMPRESSION 1. Bilateral hydronephrosis versus renal parapelvic cysts similar to the previous CT. 2. The previously demonstrated calculi in both kidneys and collecting systems are not as well seen on this study. 3. Splenomegaly. Dictated by... Sang Giron M.D. THIS IS AN ELECTRONICALLY VERIFIED REPORT [facility] A Service of [facility] RADIOLOGY TEXT RESULTS PATIENT: ANUJ BALLESTEROS LOCATION: [facility] : 35 UNIT #: [id number] AGE: [address]: Calixto Jones MD SEX: F ORDER DR: Sang Giron M.D. at 11/10/2016 8:18 AM ELISE/jenaro TD: 11/06/2016 08:13 JOB #: [id number] MEDICAL IMAGING REPORT Page 1 of 1 COPY
[2016-11-05 08:52] LABS: HEMATOCRIT 26.5 % (35.0-45.0); MEAN CELL VOLUME 93.2 FL (83-96); MEAN CORPUSCULAR HEMOGLOBIN 31.7 PG (28-34); MEAN PLATELET VOLUME 7.6 FL (6.5-11.5); RED BLOOD COUNT 2.85 X10e (3.90-5.30); RED CELL DISTRIBUTION WIDTH 17.8 % (11.0-15.5); WHITE BLOOD COUNT 5.3 X10e3 (4.0-10.5)
[2016-11-05 10:06] LABS: BUN/CREATININE RATIO 17.14; CALCIUM SERUM 7.8 mg/dL (8.4-10.2); CREATININE SERUM 1.4 mg/dL (0.6-1.4); GLOM FILT RATE Estimated 35.1 mL/min (>60); POTASSIUM 3.7 mmol/L (3.5-5.1)
[2016-11-07 05:44] LABS: CA 19-9 23 U/mL (<34); CA125 437 U/mL (<35)
== END | disposition home or self-care (01) ==
LOC: CGUS 08:23
PROVIDERS: Internal Medicine
DX: R10.9 Unspecified abdominal pain (principal); N20.1 Calculus of ureter; N28.89 Other specified disorders of kidney and ureter; R16.1 Splenomegaly, not elsewhere classified
CPT/HCPCS: 36415; 76700; 80048; 82105; 85027; 86301; 86304

== ENCOUNTER → 2016-11-11 | Outpatient (CLI) | payer MEDICARE, BC ==
[2016-11-11 08:24] LABS: HEMATOCRIT 26.7 % (35.0-45.0); MEAN CELL VOLUME 93.9 FL (83-96); MEAN CORPUSCULAR HEMOGLOBIN 31.5 PG (28-34); MEAN CORPUSCULAR HGB CONC 33.5 g/dL (30-36); MEAN PLATELET VOLUME 7.5 FL (6.5-11.5); RED BLOOD COUNT 2.85 X10e (3.90-5.30); RED CELL DISTRIBUTION WIDTH 17.9 % (11.0-15.5); WHITE BLOOD COUNT 5.3 X10e3 (4.0-10.5)
== END | disposition home or self-care (01) ==
LOC: CLAB 07:59
PROVIDERS: Internal Medicine Gastroenterology
DX: D62 Acute posthemorrhagic anemia (principal)
CPT/HCPCS: 36415; 85027